=== PATIENT | female | born 2000 | race Caucasian/White ===

== ENCOUNTER 2022-01-23 03:56 | Emergency (ER) | payer SELFPAY ==
[~2022-01-23] VITALS: Ht 162.6 cm; Wt 63.5 kg
[2022-01-23] MEDS ORDERED: KETOROLAC 30MG/ML VIAL IV STA (05:21)
[2022-01-23 06:59] LABS: BASOPHILS % 0.6 % (0.0-2.0); EOSINOPHILS % 0.2 % (0.0-5.0); HEMATOCRIT. 38.2 % (36.0-48.0); HEMOGLOBIN. 12.9 g/dL (12.0-16.0); LYMPHOCYTES % 17.8 % (20.0-50.0); MEAN CORPUSCULAR HEMOGLOBIN 29.1 pg (28.0-32.0); MEAN CORPUSCULAR VOLUME 86.4 fL (81.0-99.0); MEAN PLATELET VOLUME 8.7 fl (7.4-10.4); MONOCYTES % 4.7 % (2.0-8.0); NEUTROPHILS % 76.7 % (40.0-76.0); PLATELET 239 x1000/uL (130-400); RED BLOOD CELL COUNT 4.43 mill/uL (4.2-5.4); RED CELL DISTRIBUTION WIDTH 14.2 % (11.6-14.6)
[2022-01-23 07:04] LABS: CHLORIDE 110 mEq/L (98-107)
[2022-01-23] MEDS ORDERED: IBUP-2028 MT (07:34)
[2022-01-23 08:00] VITALS: BP 103/54
== END 2022-01-23 09:40 | disposition home or self-care (01) ==
LOC: ER 03:56
DX: R07.89 Other chest pain (principal); M79.662 Pain in left lower leg
CPT/HCPCS: 36415; 71046; 73560; 73590; 80053; 81025; 85025; 93005; 96374; 99285; J1885; Z7610